=== PATIENT | female | born 1955 | race Caucasian/White ===

== ENCOUNTER 2018-03-19 13:13 | Emergency (ER) | payer OTHER, SELFPAY ==
[2018-03-19 13:14] VITALS: BP 183/91; PULSE 97; RESP 13; TEMP 36.9; O2SAT 100; BMI 29.3
--- NOTE | 2018-03-19 13:23 | EKG12_ITS ---
Test Reason : CP Blood Pressure : / mmHG Vent. Rate : 096 BPM Atrial Rate : 096 BPM P-R Int : 166 ms QRS Dur : 086 ms QT Int : 344 ms P-R-T Axes : 061 -01 031 degrees QTc Int : 434 ms Normal sinus rhythm Normal ECG Confirmed by ESTELLE FRIEND, JULIAN ([id number]), communications editor BRAULIO PEREZ ([id number] on 03/24/2018 2:22:17 PM Referred By: RAE Confirmed By:JULIAN MCCABE MD
--- NOTE | 2018-03-19 13:23 | RAD_ITS ---
STUDY: X-RAY CHEST REASON FOR EXAM: Female, 62 years old. Chest pain. TECHNIQUE: Single AP portable view of the chest. COMPARISON: Comparison is made with prior study dated September 11, 2017. FINDINGS: EKG electrodes are seen. The lungs are clear and expanded. Scattered calcified granulomas. There is no demonstrated pleural abnormality. Normal size heart. Normal mediastinum and sandra. Normal visualized pulmonary arteries. There is atherosclerotic calcification of the aortic arch with tortuosity. Normal visualized thoracic spine. Normal visualized ribs, clavicles, and shoulders. There is no demonstrated abnormality of the visualized soft tissue structures of the upper abdomen. RAD/Chest 1 View (Portable) IMPRESSION: No acute abnormality is seen. Electronically Signed: Julio Garner MD at 15:10 EDT Tel [phone], Service support ,
[2018-03-19 13:32] LABS: Absolute Lymphocyte Count 1.89 X10^3/ul (0.83-4.51); Absolute Neutrophil Count 5.3 X10^3/uL (2.0-7.7); Basophil# 0.09 X10^3/uL; Basophil% 1.1 % (0-1); Eosinophil# 0.45 X10^3/uL; Eosinophils% 5.3 % (0-5); Hematocrit 42.3 % (37-47); Hemoglobin 13.7 g/dl (12.0-15.0); Lymphocyte # 1.89 X10^3/ul (4.0); Lymphocyte % 22.4 % (19-41); Mean Corp Hgb Conc 32.4 g/gl (32-36); Mean Corpuscular Hgb 29.4 pg (27.0-32.0); Mean Corpuscular Volume 90.8 fL (81-99); Mean Platelet Vol. 10.9 fl (6.2-12.0); Monocyte# 0.72 X10^3/uL; Monocyte% 8.5 % (0-10); Neutrophil # 5.29 X10^3/uL (2.7-7.7); Neutrophil % 62.6 % (47-70); Platelet Count 284 K/mm3 (150-450); RBC Distribution Width SD 42.7 fl (35.1-43.9); Red Blood Count 4.66 M/mm3 (4.2-5.4); White Blood Count 8.5 K/mm3 (4.4-11.0)
[2018-03-19 13:33] LABS: POSITIVE COUNT NO; POSITIVE DIFFERENTIAL NO; POSITIVE MORPHOLOGY NO
[2018-03-19 13:43] VITALS: O2SAT 100
[2018-03-19 13:46] LABS: Anion Gap 10 (5-15); BUN 19 mg/dL (7-18); BUN/Creat Ratio 18.8 RATIO (10-20); Calcium,Total 9.3 mg/dL (8.5-10.1); Chloride 103 mmol/L (98-107); Creatinine, Serum 1.01 mg/dL (0.55-1.02); EST Glomerular Filtration Rate 59 mL/min (>60); Est Glom Filt Rate - Afr Amer 71 mL/min (>60); Estimated Creatinine Clearance 50.64 ml/min; Glucose 118 mg/dL (74-106); Potassium 3.8 mmol/L (3.5-5.1); Sodium Level 141 mmol/L (136-145)
--- NOTE | 2018-03-19 13:52 | ED.VISSUMM ---
- ER Visit Summary Date of Service: 03/19/18 Chief Complaint: Flushed and felt weak all over. History of Present Illness: The patient is a 62 F history of hypertension and high cholesterol with prediabetes. Patient states just was not felt great all day. Says she felt flushed and weak all over. Thought was secondary to her blood pressure being up. He denies any chest pain there is that she had some tingling. Did not felt short of breath. Denies any nausea. No diaphoresis. States currently feeling better. She denies any recent travel, surgery, mobilization. Denies any leg pain. Denies any recent exertional dyspnea or exertional chest pain. She has never had a DVT or PE any significant risk factors. Currently she is symptom-free pain-free. Denies any back pain. Physical Examination: Well-appearing older female. Vital signs stable afebrile. Initial blood pressure is 183/91. H EENT exam unremarkable. Neck nontender no JVD. Lungs clear to auscultation bilaterally. Heart regular rate and rhythm no murmur. Chest wall nontender. Abdomen soft nontender. Normal bowel sounds no peritoneal signs. She is moving all 4 extremities. They are neurovascularly intact. Calves are nontender without edema or cords. She has equal symmetrical radial pulses. 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 Back nontender. Neurologic exam normal. Test Results: CBC normal. White count is 8. Normal H&H. BMP normal. Normal gap. Troponin normal. EKG sinus rhythm with a rate of 64 with no acute changes and no change from prior EKG from September of this year. Chest x-ray shows no acute abnormality read by myself. Normal cardiac silhouette Emergency Department Course and Treatment: Clinically the history is more consistent with just not feeling well. It is not a strong cardiac history at all. She is a non-smoker. She has limited family history of coronary disease. She has had no recent exertional dyspnea or exertional chest pain. No leg pain or swelling no risk for DVT or PE. Treatment Plan: Workup is negative. No current with her being discharged home to log her blood pressures twice daily and follow-up with her primary care physician. 1445. Exam is unchanged. I went over all test results with her and family. She is comfortable being discharged home with outpatient further evaluation. She was riding in a cart in the store this was not exertional. She has had no recent exertional chest pain or exertional dyspnea I am comfortable with her being discharged with further outpatient evaluation she is to return if worse. Disposition: Discharge Impression: Acute on chronic hypertension Fatigue This note was generated with [employer] dictation software. It may contain incorrect words, spelling, and punctuation that were not noted in review of the chart prior to signing ED Disposition - Plan for ED Patient: Disposition: Home or Assisted Living Chief Complaint: Chest Pain Instructions: ED Chest Pain Atypical Unkn Cause, ED HTN Established Referrals: [facility],Out of [Primary Care Provider] - As soon as possible Additional Instructions: Your labs, chest x-ray and EKG were all normal today. This may be secondary to your blood pressure. Currently there is no signs of being underlying cardiac disease. Log your blood pressures twice daily. Take these numbers and follow-up with primary care physician to see if they may or may not need to adjust her blood pressure medication. Return to ER feeling worse.
--- NOTE | 2018-03-19 13:56 | ED.DEP ---
ED Disposition - Plan for ED Patient: Chief Complaint: Chest Pain Instructions: ED Chest Pain Atypical Unkn Cause, ED HTN Established Referrals: [facility] Doctor,Out of [Primary Care Provider] - As soon as possible Additional Instructions: Your labs, chest x-ray and EKG were all normal today. This may be secondary to your blood pressure. Currently there is no signs of being underlying cardiac disease. Log your blood pressures twice daily. Take these numbers and follow-up with primary care physician to see if they may or may not need to adjust her blood pressure medication. Return to ER feeling worse.
[2018-03-19 14:13] VITALS: BP 160/76; PULSE 84; RESP 18; O2SAT 96
--- NOTE | 2018-03-19 14:50 | DCINST.ED_ITS ---
ED Disposition - Plan for ED Patient: Chief Complaint: Chest Pain Instructions: ED Chest Pain Atypical Unkn Cause, ED HTN Established Referrals: [facility] Doctor,Out of [Primary Care Provider] - As soon as possible Additional Instructions: Your labs, chest x-ray and EKG were all normal today. This may be secondary to your blood pressure. Currently there is no signs of being underlying cardiac disease. Log your blood pressures twice daily. Take these numbers and follow-up with primary care physician to see if they may or may not need to adjust her blood pressure medication. Return to ER feeling worse.
[2018-03-19 15:30] VITALS: BP 149/74; PULSE 76; RESP 10; O2SAT 97
== END 2018-03-19 15:31 | disposition home or self-care (01) ==
PROVIDERS: Emergency Provider Emergency Medicine; Family Provider Family Medicine; PCP Family Medicine
DX: I10 Essential (primary) hypertension (principal); R53.83 Other fatigue; E78.00 Pure hypercholesterolemia, unspecified; E11.9 Type 2 diabetes mellitus without complications
CPT/HCPCS: 71045; 80048; 84484; 85025; 93005; 99284; A4216

== ENCOUNTER → 2020-10-12 16:07 | Outpatient (CLI) | payer MEDICARE, SELFPAY | PROVIDERS: Visit Provider Otolaryngology | DX: J38.2 Nodules of vocal cords (principal) | CPT/HCPCS: 87070; 87077; 87186; 87205 ==

== ENCOUNTER → 2021-08-09 15:43 | Outpatient (CLI) | payer MEDICARE, SELFPAY | PROVIDERS: Visit Provider Otolaryngology | DX: J32.9 Chronic sinusitis, unspecified (principal) | CPT/HCPCS: 87070; 87077; 87184; 87186; 87205 ==